=== PATIENT | female | born 1960 | race Hispanic/Latino ===

== ENCOUNTER 2020-03-05 19:39 | Observation (INO) | payer OTHER ==
[~2020-03-05] VITALS: Ht 160 cm; Wt 66.7 kg
--- NOTE | 2020-03-05 20:23 | Emergency Department Note ---
History of Present Illnes History of Present Illness Chief Complaint: Respiratory History of Present Illness This is a 60 year old female presents with one day h/o of dyspnea. Previous ad mission for respiratory failure secondary to COVID-19 infection at [facility]. Patient has been on supplemental oxygen since hospitalization. Seen at bedside with slight tachypnea . 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 Any updates have been documented here. Past Medical History Recent Fever: No Past Medical History: COPD Other Medical History: COVID-19 infection Other Surgery: PEG tube placement Social History Smoking Cessation: Current some day smoker Alcohol Use: None Any Illegal Drug Use: No Review of Systems Review of Systems Constitutional: Reports no symptoms EENTM: Reports no symptoms Cardiovascular: Reports no symptoms Respiratory: Reports dyspnea Gastrointestinal: Reports no symptoms Genitourinary: Reports no symptoms Musculoskeletal: Reports no symptoms Integumentary: Reports no symptoms Neurological: Reports no symptoms Psychological: Reports no symptoms Endocrine: Reports no symptoms Hematological/Lymphatic: Reports no symptoms Physical Exam Related Data Allergies: Coded Allergies: No Known Drug Allergies (Verified Allergy, Unknown, 03/05/20) Triage Vital Signs Vital Signs Date Time Temp Pulse Resp B/P (MAP) Pulse Ox O2 Delivery O2 Flow Rate FiO2 03/05/20 20:16 99.6 124 28 133/71 100 Nasal Cannula 2.0 Vital signs reviewed: Yes Physical Exam CONSTITUTIONAL Constitutional: Present cachectic, Present distressed, Present ill appearing HENT HENT: Present normocephalic, Present atraumatic, Present oropharynx clear/moist, Present nose normal HENT L/R: Present left ext ear normal, Present right ext ear normal EYES Eyes: Reports PERRL, Reports conjunctivae normal NECK Neck: Present ROM normal PULMONARY Pulmonary: Present effort normal, Present breath sounds normal CARDIOVASCULAR Cardiovascular: Present regular rhythm, Present heart sounds normal, Present capillary refill normal, Present normal rate GASTROINTESTINAL Abdominal: Present soft, Present nontender, Present bowel sounds normal GENITOURINARY Genitourinary: Present exam deferred SKIN Skin: Present dry, Present pale, Present other (wound vac installed at [facility]) MUSCULOSKELETAL Musculoskeletal: Present ROM normal NEUROLOGICAL Neurological: Present alert, Present oriented x 3, Present no gross motor or sensory deficits PSYCHOLOGICAL Psychological: Present mood/affect normal, Present judgement normal Results Laboratory Lab results reviewed: Yes Imaging Imaging results reviewed: Yes Impressions [place] [address] Patient Name: FLAVIA GARCIA MR #: [id number] : 1960 Age/Sex: 60/F Req #: [id number] Adm Physician: Ordered by: BRIE CURRY DO Report #: [id number] Location: ER Room/Bed: Procedure: [id number] DX/CHEST SINGLE (PORTABLE) Exam Date: 03/05/20 Exam Time: 2129 REPORT STATUS: Signed EXAMINATION: CHEST SINGLE (PORTABLE) INDICATION: Shortness of breath. COMPARISON: None FINDINGS: TUBES and LINES: None. LUNGS: Decreased interstitial opacities throughout both lungs predominantly affecting the upper lobes. Pulmonary vasculature is indistinct. Shallow inspiration. PLEURA: No pleural effusion or pneumothorax. HEART AND MEDIASTINUM: The cardiomediastinal silhouette is unremarkable. BONES AND SOFT TISSUES: No acute osseous lesion. Soft tissues are unremarkable. UPPER ABDOMEN: No free air under the diaphragm. IMPRESSION: Shallow inspiration with increased interstitial opacities in the upper and mid lungs. Findings are concerning for an infectious/inflammatory process such as viral pneumonia. Edema could have this appearance, but lack of pleural effusions makes this less likely. Radiographic follow-up in 6-8 weeks to document resolution is recommended. Signed by: Shukri Floyd MD on 03/05/2020 10:07 PM Dictated By: SHUKRI FLOYD MD 06 Transcribed By: RANI on 03/05/202206 COPY TO: BRIE CURRY DO~ Procedures 12 Lead ECG Interpretation ECG Interpretation : ECG: ECG 1 Business And Financial Counsel: Interpreted by ED physician Date: Mar 05, 2020 Time: 20:46 Prior ECG tracings: reviewed Rhythm: sinus rhythm Rate: normal BPM: 82 QRS axis: normal ST segments normal: Yes T waves normal: Yes Pacin% capture Clinical Impression: non-specific ECG Assessment & Plan Medical Decision Making MDM Diff Dx : ACS , PE, COVID-19 reinfection, sepsis, DKA Assessment & Plan Final Impression: (1) Dyspnea (2) Sacral wound (3) Hypokalemia Depart Disposition: ADMITTED Home Meds Reported Medications Gabapentin (GABAPENTIN) 100 Mg Capsule, 100 CAP PO Q8H 03/05/20 Quetiapine Fumarate (QUETIAPINE FUMARATE) 25 Mg Tablet, 25 MG PO Q8H 03/05/20 Polyethylene Glycol 3350 (MIRALAX) 17 Gm Powd.pack, 17 GM PO DAILY PRN for CONSTIPATION, GM 03/05/20 Potassium Chloride (POTASSIUM CHLORIDE) 20 Meq Tab.er.prt, 40 MEQ PO Q12H 03/05/20 Omeprazole (OMEPRAZOLE) 40 Mg Capsule.dr, 20 MG PO DAILY 03/05/20 Levothyroxine Sodium (SYNTHROID) 88 Mcg Tablet, 88 MCG PO 0630, #30 TAB 03/05/20 Furosemide (FUROSEMIDE) 40 Mg Tablet, 20 MG PO Daily, #30 TAB 03/05/20 Ipratropium [place] (IPRATROPIUM BROMIDE) 0.2 Mg/1 Ml Solution, 0.5 MG NEB, EACH 03/05/20 Budesonide (PULMICORT) 1 Mg/2 Ml Ampul.neb, 0.5 MG INH BID 03/05/20 Melatonin (MELATONIN) 3 Mg Tablet, 3 MG PO HS, TAB 03/05/20 Medications in the ED Aspirin 81 mg PRN ONCE PO Last administered on 03/05/20at 21:16; Admin Dose 81 MG; Start 03/05/20 at 20:30; Stop 03/05/20 at 20:31 Potassium Chloride 10 meq DAILY PO Last administered on 03/06/20at 00:27; Admin Dose 10 MEQ; Start 03/05/20 at 22:00; Stop 03/06/20 at 08:46; Status BRIE CHANDRA DO Mar 05, 2020 20:23
[2020-03-05] MEDS ORDERED: ASPIRIN 81 MG CHEW TAB PO ONE (20:30)
[2020-03-05] MEDS ORDERED: OMEPRAZOLE40 MG PO (20:52)
[2020-03-05] MEDS ORDERED: POTASSIUM CHLO20 ME1 PO (20:52)
[2020-03-05] MEDS ORDERED: MIRALAX17 GM PO (20:52)
[2020-03-05] MEDS ORDERED: MELATONIN3 MG PO (20:52)
[2020-03-05] MEDS ORDERED: SYNTHROID88 MCG PO (20:52)
[2020-03-05] MEDS ORDERED: PULMICORT1 MG/2 ML INH (20:52)
[2020-03-05] MEDS ORDERED: GABAPENTIN100 MG PO (20:52)
[2020-03-05] MEDS ORDERED: IPRATROPIU0.2 MG/1 M NEB (20:52)
[2020-03-05] MEDS ORDERED: QUETIAPINE FUMA25 MG PO (20:52)
[2020-03-05] MEDS ORDERED: FUROSEMIDE40 MG PO (20:52)
[2020-03-05 21:08] LABS: BASOPHILS % 0.3 % (0.0-1.0); EOSINOPHILS # (AUTO) 0.2 (0.0-0.4); HEMATOCRIT 35.1 % (34.2-44.1); HEMOGLOBIN 11.3 g/dL (12.0-16.0); LYMPHOCYTES # (AUTO) 2.2 (1.0-3.2); LYMPHOCYTES % 21.2 % (18.0-39.1); MEAN CORPUSCULAR HEMOGLOBIN 31.7 pg (28-32); MEAN CORPUSCULAR HGB CONC 32.2 g/dL (31-35); MEAN CORPUSCULAR VOLUME 98.6 fL (81-99); MONOCYTES # (AUTO) 0.9 (0.2-0.8); MONOCYTES % 8.9 % (4.4-11.3); NEUTROPHILS % 67.2 % (38.7-80.0); PLATELET COUNT 349 x10e3/uL (140-360); RED BLOOD COUNT 3.56 x10e6/uL (3.6-5.1); RED CELL DISTRIBUTION WIDTH 13.3 % (11.7-14.4)
[2020-03-05 21:24] LABS: ALANINE AMINOTRANSFERASE 11 IU/L (0-55); ALBUMIN 3.5 g/dL (3.5-5.0); ALBUMIN/GLOBULIN RATIO 0.8 (0.8-2.0); ALKALINE PHOSPHATASE 127 IU/L (40-150); ANION GAP 15.9 mmol/L (8-16); BLOOD UREA NITROGEN 9 mg/dL (7-26); BUN/CREATININE RATIO 12 (6-25); CARBON DIOXIDE 33 mmol/L (22-29); CHLORIDE 97 mmol/L (98-107); CREATINE KINASE 12 IU/L (29-168); CREATININE, SERUM 0.74 mg/dL (0.57-1.11); EST GLOMERULAR FILTRATION RATE > 60 ML/MIN (60-); GLUCOSE 131 mg/dL (74-118); SODIUM 143 mmol/L (136-145)
[2020-03-05 21:25] LABS: POTASSIUM 2.9 mmol/L (3.5-5.1)
[2020-03-05 21:35] LABS: B-TYPE NATRIURETIC PEPTIDE2 < 10.0 pg/mL (0-100)
[2020-03-05] MEDS ORDERED: POTASSIUM CHLORIDE 10MEQ EA PO SCH (22:00)
--- NOTE | 2020-03-05 22:10 | Diagnostic Imaging Report ---
EXAMINATION: CHEST SINGLE (PORTABLE) INDICATION: Shortness of breath. COMPARISON: None FINDINGS: TUBES and LINES: None. LUNGS: Decreased interstitial opacities throughout both lungs predominantly affecting the upper lobes. Pulmonary vasculature is indistinct. Shallow inspiration. PLEURA: No pleural effusion or pneumothorax. HEART AND MEDIASTINUM: The cardiomediastinal silhouette is unremarkable. BONES AND SOFT TISSUES: No acute osseous lesion. Soft tissues are unremarkable. UPPER ABDOMEN: No free air under the diaphragm. IMPRESSION: Shallow inspiration with increased interstitial opacities in the upper and mid lungs. Findings are concerning for an infectious/inflammatory process such as viral pneumonia. Edema could have this appearance, but lack of pleural effusions makes this less likely. Radiographic follow-up in 6-8 weeks to document resolution is recommended. Signed by: Jamal Harley MD on 03/05/2020 10:07 PM
--- OUTSIDE RECORDS SUMMARY | 2020-03-05 23:37 | XMS REPORT | Continuity of Care Document ---
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 Allergies, Adverse Reactions, Alerts This patient has no known allergies or adverse reactions. Medications This patient has no known medications. Procedures This patient has no known procedures. Results Test Description Test Time Test Comments Results Result Comments Source CHEST SINGLE (PORTABLE) 2020-03-05 21:59:00 [place] [address] Patient Name: FLAVIA GARCIA MR #: [id number] : 1960 Age/Sex: 60/F Req #: [id number] Adm Physician: Ordered by: BRIE CURRY DO Report #: [id number] Location: ER Room/Bed: Procedure: [id number] DX/CHEST SINGLE (PORTABLE) Exam Date: 03/05/20 Exam Time: 2129 REPORT STATUS: Signed EXAMINATION: CHEST SINGLE (PORTABLE) INDICATION: Shortness of breath. COMPARISON: None FINDINGS: TUBES and LINES: None. LUNGS: Decreased interstitial opacities throughout both lungs predominantly affecting the upper lobes. Pulmonary vasculature is indistinct. Shallow inspiration. PLEURA: No pleural effusion or pneumothorax. HEART AND MEDIASTINUM: The cardiomediastinal silhouette is unremarkable. BONES AND SOFT TISSUES: No acute osseous lesion. Soft tissues are unremarkable. UPPER ABDOMEN: No free air under the diaphragm. IMPRESSION: Shallow inspiration with increased interstitial opacities in the upper and mid lungs. Findings are concerning for an infectious/inflammatory process such as viral pneumonia. Edema could have this appearance, but lack of pleural effusions makes this less likely. Radiographic follow-up in 6-8 weeks to document resolution is recommended. Signed by: Shukri Floyd MD on 03/05/2020 10:07 PM Dictated By: SHUKRI FLOYD MD 06 Transcribed By: RANI on 03/05/202206 COPY TO: BRIE CURRY DO
[2020-03-06] VITALS (7 sets, daily range): BP systolic 98–106; BP diastolic 52–62
[2020-03-06 04:39] LABS: BASOPHILS % 0.4 % (0.0-1.0); EOSINOPHILS # (AUTO) 0.2 (0.0-0.4); EOSINOPHILS % 3.1 % (0.0-6.0); HEMATOCRIT 30.4 % (34.2-44.1); HEMOGLOBIN 9.6 g/dL (12.0-16.0); LYMPHOCYTES # (AUTO) 1.9 (1.0-3.2); LYMPHOCYTES % 25.1 % (18.0-39.1); MEAN CORPUSCULAR HEMOGLOBIN 31.5 pg (28-32); MEAN CORPUSCULAR HGB CONC 31.6 g/dL (31-35); MEAN CORPUSCULAR VOLUME 99.7 fL (81-99); MONOCYTES # (AUTO) 0.7 (0.2-0.8); MONOCYTES % 8.8 % (4.4-11.3); NEUTROPHILS # (AUTO) 4.8 (2.1-6.9); NEUTROPHILS % 62.3 % (38.7-80.0); PLATELET COUNT 274 x10e3/uL (140-360); RED BLOOD COUNT 3.05 x10e6/uL (3.6-5.1); RED CELL DISTRIBUTION WIDTH 13.4 % (11.7-14.4)
[2020-03-06 04:58] LABS: ALANINE AMINOTRANSFERASE 11 IU/L (0-55); ALBUMIN/GLOBULIN RATIO 0.7 (0.8-2.0); ALKALINE PHOSPHATASE 115 IU/L (40-150); ANION GAP 13.3 mmol/L (8-16); BLOOD UREA NITROGEN 8 mg/dL (7-26); BUN/CREATININE RATIO 12 (6-25); CALCIUM 9.4 mg/dL (8.4-10.2); CARBON DIOXIDE 33 mmol/L (22-29); CHLORIDE 98 mmol/L (98-107); CREATININE, SERUM 0.68 mg/dL (0.57-1.11); EST GLOMERULAR FILTRATION RATE > 60 ML/MIN (60-); GLUCOSE 109 mg/dL (74-118); POTASSIUM 3.3 mmol/L (3.5-5.1); SODIUM 141 mmol/L (136-145)
[2020-03-06 05:33] LABS: CREATINE KINASE 7 IU/L (29-168)
--- NOTE | 2020-03-06 06:53 | NUR ---
Dr Mayfield notified of consult for dyspnea and viral PNA. Will see patient.
[2020-03-06] MEDS ORDERED: POTASSIUM CHLORIDE 20 MEQ TAB CR PO ONE (09:35)
[2020-03-06] MEDS ORDERED: POLYETHYLENE GLYCOL 3350 17 GM PACK PO PRN (10:00)
[2020-03-06] MEDS ORDERED: ALBUTEROL SULFATE HFA 8GM INHALATION AEROSOL INH PRN (12:30)
[2020-03-06] MEDS ORDERED: IPRATROPIUM BROMIDE 0.02% 2.5 ML NEB NEB PRN (12:30)
--- NOTE | 2020-03-06 13:10 | NUR ---
infectious disease consultation note. March 06, 2023 Patient seen and examined chart reviewed. Chief complaint pain in the buttock area. This patient who is currently in the medical floor complaining of pain in the buttock area which has a wound VAC the patient denied shortness of breath or cough apparently she was diagnosed with cold with a while ago she had a lengthy hospitalization Patient came to our emergency room complaining of shortness of breath but currently she is alert oriented and comfortable there is no shortness of breath when I asked her her main complaint was mainly the pain in the perirectal area she denies any fever or chills nausea vomiting or diarrhea. Her This is a 60 year old female presents with one day h/o of dyspnea. Previous admission for respiratory failure secondary to COVID-19 infection at [facility]. Patient has been on supplemental oxygen since hospitalization. Seen at bedside with slight tachypnea . 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 Any updates have been documented here. Physical Exam Related Data Allergies: Coded Allergies: No Known Drug Allergies (Verified Allergy, Unknown, 03/05/20) Physical Exam CONSTITUTIONAL is currently alert oriented does not seem to be in acute distress HENT EYES it is not spelled out icteric normocephalic NECK supple no JVD no lymphadenopathy no thyromegaly PULMONARY few crackles bilateral CARDIOVASCULAR S1-S2 no S3-S4 GASTROINTESTINAL abdomen soft parts of present extremities no edema GENITOURINARY external inspection within normal limit SKINno rash MUSCULOSKELETAL generalized weakness NEUROLOGICAL nonfocal PSYCHOLOGICAL Results ImagingShallow inspiration with increased interstitial opacities in the upper and mid lungs. Findings are concerning for an infectious/inflammatory process such as viral pneumonia. Edema could have this appearance, but lack of pleural effusions makes this less likely. Radiographic follow-up in 6-8 weeks to document resolution is recommended. she is currently on 3 L of oxygen Lab data reviewed impression and plan Patient shortness of breath dyspnea concerned about pneumonia community-acquired may be aspiration in a patient who is debilitated given Rocephin 1 g daily. Hypoxemia oxygen as needed she probably to go home with oxygen. Decubitus ulcers continue with local care. History of 1219. Debility PT OT we will follow with you
--- NOTE | 2020-03-06 13:44 | Consultation ---
DATE OF CONSULTATION: Pulmonary Critical Care Consultation CHIEF COMPLAINT: Dyspnea following prolonged COVID illness. HISTORY OF PRESENT ILLNESS: The patient is a 60-year-old woman. She required hospitalization at the [facility] for COVID with respiratory failure. She was fine and they released from the hospital about 12 days ago. She has now noticed some increased dyspnea. She has a mild cough, but no fevers. She does not have chest pain. She uses oxygen at home. PAST SURGICAL HISTORY: Status post hysterectomy. PAST MEDICAL HISTORY: 1. History of COVID, as noted above. 2. Hypertension. 3. No prior history of asthma or respiratory problems. 4. No prior history of cardiac problems. SOCIAL HISTORY: The patient is not a drinker or smoker. FAMILY HISTORY: Family history is noncontributory. ALLERGIES: THERE ARE NO KNOWN DRUG ALLERGIES. FAMILY HISTORY: Noncontributory. REVIEW OF SYSTEMS: There is no history of recent fevers. She has fatigue. She notes some dyspnea with exertion. She has no headache. She is not having chest pain. She has mild cough. There is no nausea or vomiting. She has no leg swelling. She does not complain of any focal neurological problems. PHYSICAL EXAMINATION: VITAL SIGNS: The patient is afebrile. The blood pressure is 106/62, saturation is 100% on 2 L, and the pulse is 90. The respiratory rate is 20. HEENT: Shows no facial swelling or erythema. LYMPHATIC: Shows no submandibular, cervical, or supraclavicular adenopathy. CARDIAC: Reveals a regular rate and rhythm with normal S1 and S2. LUNGS: Auscultation of lungs reveals rhonchorous breath sounds bilaterally. There is no wheezing. ABDOMEN: Soft and nontender. There is no rebound or guarding. EXTREMITIES: Shows no leg edema or calf tenderness. There is no cyanosis or clubbing. SKIN: Shows no rashes. NEUROLOGICAL: Shows no focal abnormalities. LABORATORY DATA: White blood cell count is 7.6 and the hemoglobin is 9.6. The platelet count is 274. The BUN to creatinine ratio is 8 to 0.68, potassium is 3.3, and the other electrolytes are within normal limits. RADIOGRAPHIC DATA: Chest x-ray shows some increased interstitial opacities consistent with resolving viral pneumonia. IMPRESSION: 1. Dyspnea and shortness of breath following a prolonged COVID illness. 2. Anemia, unspecified. 3. Hypokalemia. PLAN: 1. The patient should have a CT scan of the chest with a pulmonary angiogram protocol to rule out pulmonary embolism. The patients with COVID or hypercoagulable and increased risk for pulmonary emboli. 2. Echocardiogram to evaluate for any myocarditis or cardiac injury related to prior COVID. 3. The patient is afebrile at this time with no white blood cell count. I do not believe she has active pneumonia and did not recommend antibiotics at this time. 4. Continue oxygen. 5. Physical therapy. 6. Wound care for decubitus ulcer that was present on admission. Fabian Mayfield MD [facility]/MARK /[id number]
[2020-03-06] MEDS ORDERED: GABAPENTIN 100 MG CAP PO SCH (14:00)
[2020-03-06] MEDS ORDERED: QUETIAPINE FUMARATE 25 MG TAB PO SCH (14:00)
[2020-03-06] MEDS ORDERED: CEFTRIAXONE SOD 1 GM/NS 50 ML 50 ML IV SCH ×2 (14:00→16:00)
--- NOTE | 2020-03-06 14:11 | NUR ---
Wound care consult for sacral wound patient personal VAC unit on sacral wound running 125mmhg continuos with black foam patient reports vac was just applied and prefer to change on reg change date which will be Thursday03/07/2020 Will reapply patient personal unit 03/07/2020 if ok with MD due to potential evacuation R/T adverse weather conditions Addendum: 03/06/20 at 1418 by Barry Adrian RN Amended: Links added.
[2020-03-06] MEDS ORDERED: SODIUM CHLORIDE 0.9% 50ML 50 ML ONE (15:37)
[2020-03-06] MEDS ORDERED: IOPAMIDOL 370 MG/ML 200 ML INFUS..BTL INJ ONE (15:37)
--- NOTE | 2020-03-06 16:35 | Diagnostic Imaging Report ---
EXAM: CT Chest WITH contrast- Pulmonary Embolism Protocol INDICATION: Shortness of breath COMPARISON: None TECHNIQUE: Chest was scanned utilizing a multidetector helical scanner from the lung apex through the level of the diaphragm after administration of IV contrast. Thin section reconstructions were obtained with special concentration on the pulmonary arteries. Coronal and sagittal reformations were obtained. Pulmonary embolism protocol was performed. IV CONTRAST: 100 cc of Isovue 370 RADIATION DOSE: Total DLP: 473 mGy*cm Dose modulation, iterative reconstruction, and/or weight based adjustment of the mA/kV was utilized to reduce the radiation dose to as low as reasonably achievable. COMPLICATIONS: None FINDINGS: LINES/ TUBES: None. PULMONARY ARTERIES: No filling defect is identified within the pulmonary arteries to the segmental level. The subsegmental pulmonary arteries are not well opacified. Main pulmonary artery measures 2.1 cm in diameter. No right heart strain. LUNGS AND AIRWAYS: The central airways are patent. Diffuse upper lobe predominant bronchiectasis. Diffusely increased bilateral upper lobe predominant interstitial opacities without honeycombing. Generalized subpleural sparing. PLEURA: The pleural spaces are clear. HEART AND MEDIASTINUM: The thyroid gland is normal. No supraclavicular, axillary or mediastinal lymphadenopathy. Mild bilateral hilar lymphadenopathy measuring up to 9 mm on the left and 9 mm on the right. The heart is not enlarged. No pericardial effusion. Minimal aortic atherosclerotic calcifications. UPPER ABDOMEN: No acute findings in the upper abdomen. BONES: No acute osseous injury. No suspicious lytic or blastic lesions. SOFT TISSUES: Unremarkable. IMPRESSION: No pulmonary embolism. Bilateral upper lobe predominant bronchiectasis and diffusely increased bilateral interstitial opacities with relative subpleural sparing. In the setting of known recent history of COVID-19 viral pneumonia, findings may represent a combination of resolving post-infectious findings and chronic interstitial fibrosis/scarring. Signed by: Bronson Benson MD on 03/06/2020 4:31 PM
[2020-03-06] MEDS: QUETIAPINE FUMARATE 25 MG TAB PO SCH ×2 (16:49→21:25)
[2020-03-06] MEDS: GABAPENTIN 100 MG CAP PO SCH ×2 (16:49→21:25)
[2020-03-06] MEDS ORDERED: ENOXAPARIN SOD INJ 40 MG/0.4 ML SYR SC SCH (17:00)
[2020-03-06 17:40] LABS: CREATINE KINASE MB 0.6 ng/mL (0-5.0)
--- NOTE | 2020-03-06 19:40 | NUR ---
pt received. pt resting. no ss of distress noted. no co pain at time. tele in place. 02 nc noted. will cont to follow poc. call byrd within reach.
[2020-03-06] MEDS ORDERED: MELATONIN 3 MG TAB PO SCH (21:00)
--- NOTE | 2020-03-06 21:00 | NUR ---
report given to new pm primary nurse.
--- NOTE | 2020-03-06 23:30 | NUR ---
Report called to [facility] for room 285
--- NOTE | 2020-03-06 23:40 | NUR ---
Received the pt from [facility] in a bed.aaox3.oriented to the unit.peg tube in place.tele # [phone] place .sinus rhythm.bed locked and in lowest position.call light within reach.instructed to call for assistance as needed.
--- NOTE | 2020-03-06 23:40 | NUR ---
Patient transferred to room 285. Nurse notified of transfer. All personal belongings transferred with patient. A&Ox3 no issues or concerns noted.
--- NOTE | 2020-03-06 23:45 | NUR ---
Daughter Latrice notified of transfer to room 285. [phone]
[2020-03-07 05:10] VITALS: BP 90/55
[2020-03-07] MEDS: GABAPENTIN 100 MG CAP PO SCH (05:41)
[2020-03-07] MEDS: QUETIAPINE FUMARATE 25 MG TAB PO SCH (05:41)
[2020-03-07] MEDS ORDERED: LEVOTHYROXINE SODIUM 88 MCG TAB PO SCH (06:30)
[2020-03-07 06:37] LABS: BASOPHILS % 0.2 % (0.0-1.0); EOSINOPHILS # (AUTO) 0.2 (0.0-0.4); EOSINOPHILS % 3.6 % (0.0-6.0); HEMATOCRIT 30.2 % (34.2-44.1); HEMOGLOBIN 9.4 g/dL (12.0-16.0); LYMPHOCYTES # (AUTO) 1.4 (1.0-3.2); LYMPHOCYTES % 24.3 % (18.0-39.1); MEAN CORPUSCULAR HEMOGLOBIN 32.4 pg (28-32); MEAN CORPUSCULAR HGB CONC 31.1 g/dL (31-35); MONOCYTES # (AUTO) 0.6 (0.2-0.8); MONOCYTES % 10.3 % (4.4-11.3); NEUTROPHILS # (AUTO) 3.6 (2.1-6.9); NEUTROPHILS % 61.1 % (38.7-80.0); PLATELET COUNT 233 x10e3/uL (140-360); RED CELL DISTRIBUTION WIDTH 13.3 % (11.7-14.4)
[2020-03-07 06:48] LABS: MEAN CORPUSCULAR VOLUME 104.1 fL (81-99)
--- NOTE | 2020-03-07 06:48 | NUR ---
BEDSIDE SBAR REPORT RECEIVED FROM [facility], PM SHIFT. PT RECEIVED RESTING IN BED IN NO ACUTE DISTRESS. HOB ELEVATED 30 DEGREES. PT IS ABLE TO MAKE NEEDS KNOWN AND STATES NO NEEDS. CALL LIGHT AND BELONGINGS PLACED NEARBY. PT EDUCATED ON FALL RISK PRECAUTIONS. PT VERBALIZED UNDERSTANDING. WILL CONTINUE TO MONITOR.
[2020-03-07 07:07] LABS: ALANINE AMINOTRANSFERASE 10 IU/L (0-55); ALBUMIN 2.9 g/dL (3.5-5.0); ALBUMIN/GLOBULIN RATIO 0.8 (0.8-2.0); ALKALINE PHOSPHATASE 115 IU/L (40-150); ANION GAP 12.6 mmol/L (8-16); BLOOD UREA NITROGEN 8 mg/dL (7-26); BUN/CREATININE RATIO 12 (6-25); CALCIUM 9.6 mg/dL (8.4-10.2); CARBON DIOXIDE 33 mmol/L (22-29); CHLORIDE 105 mmol/L (98-107); CREATININE, SERUM 0.68 mg/dL (0.57-1.11); EST GLOMERULAR FILTRATION RATE > 60 ML/MIN (60-); GLUCOSE 103 mg/dL (74-118); POTASSIUM 3.6 mmol/L (3.5-5.1); SODIUM 147 mmol/L (136-145)
--- NOTE | 2020-03-07 07:08 | NUR ---
BED SIDE SHIFT REPORT GIVEN TO ONCOMING RN.STABLE CONDITION.
[2020-03-07 07:37] VITALS: BP 97/59
[2020-03-07 09:00] VITALS: BP 97/59
[2020-03-07] MEDS ORDERED: FUROSEMIDE 20 MG TAB PO SCH (09:00)
[2020-03-07] MEDS ORDERED: PANTOPRAZOLE SOD 40 MG TABEC PO SCH (09:00)
--- NOTE | 2020-03-07 09:45 | Discharge Summary ---
HISTORY: Ms. Nuno is a 60-year-old female with history of COVID in November 2019. She was sick for like 3 months, on ventilator for several weeks, came to the emergency room complaining of shortness of breath. She has been seen by Dr. Rob. She is not on any antibiotics. She is on oxygen at home. Seen also by Dr. Mayfield to rule out PE. Chest CT was negative for PE, so the plan is to discharge her home today if it is okay with consultants. She has a stage IV sacral decubiti. She is on a vacuum and home health at home. PHYSICAL EXAMINATION: GENERAL: She is awake and alert. She is feeling better. VITAL SIGNS: Temperature is 98.4, blood pressure 97/59. HEART: Regular rate. LUNGS: Poor inspiratory effort. ABDOMEN: Soft. LABORATORY DATA: On the blood work; white count 5.85, hemoglobin is 9.4, hematocrit 30.2. Potassium 3.6, creatinine is 0.68, glucose 103. Cardiac enzymes came back negative. Chest CT, no PE. Blood cultures, no growth so far. DISCHARGE DIAGNOSES: 1. Shortness of breath, probably due to chronic damage due to coronavirus disease 2019 pneumonia. 2. Chronic respiratory failure, on O2 nasal cannula. 3. Hypokalemia, resolved. 4. Hypertension. 5. Sacral decubitus stage IV, vacuum. Like I said before, the plan will be to discharge her home with home health and home oxygen. Continue vacuum. Continue wound care. So, plan is to discharge her today if it is okay with Dr. Rob and Dr. Mayfield. Please see home medication reconciliation list. All this was discussed with the patient and all questions were answered to satisfaction. MD CHAU Velasquez/MARK /[id number]
[2020-03-07 11:28] VITALS: BP 104/66
--- NOTE | 2020-03-07 12:42 | NUR ---
WOUND CARE FOLLOW UP FOR WOUND ASSESSMENT AND VAC REAPPLICATION SACRAL HEALING STAGE 4 ULCERATION WITH RED GRANDULAR BASE NOTED WITH MODERATE SERO SANG DRAINAGE MEASURES 3CM X4CM X1.5CM PATIENTS PERSONAL VAC UNIT REAPPLIED DUE TO PATIENT PROBABLE DISCHARGE AND IMPENDING WEATHER UNIT SET AT 125 MMHG CONTINUOUS WITH BLACK FOAM SEAL ACHIEVED PATIENT WITHOUT C/O PAIN TEACHING DONE RELATING TO VAC SAFETY AND NEED TO REMOVE VAC FOAM FROM WOUND BASE IF UNIT NOT WORKING OR SEAL CANNOT BE MAINTAINED WET FOAM CAN DAMAGE WOUND BASE AND BE A MEDIUM FOR INFECTION Addendum: 03/07/20 at 1248 by Barry Adrian RN Amended: Links added.
--- NOTE | 2020-03-07 14:01 | NUR ---
infectious disease progress note Patient seen and examined chart reviewed Patient is feeling much better there is no more shortness of breath she is back to her baseline lability of your chart reviewed there is no cough her physical examination she is currently alert oriented does not seem to be in acute distress her vitals stable currently afebrile HEENT she is not protecting supple chest clear bilateral heart S1-S2 abdomen soft also present extremity no edema skin no rash Patient pneumonia clinically seems in better probably aspiration patient is with no symptoms can be discharged home PT OT Oxygen as needed Patient is not infectious anymore
--- NOTE | 2020-03-07 14:30 | NUR ---
PATIENT DISCHARGED HOME WITH [facility]. PERIPHERAL IV DISCONTINUED; CATHETER INTACT WITHOUT RESISTANCE. DRY DRESSING APPLIED. PATIENT WENT HOME WITH HOME WHEELCHAIR, HOME OXYGEN, AND HOME WOUND VAC. BRADLY BERNARDO, DAUGHTER, WILL NOTIFY HOME HEALTH AGENCY THAT WOUND VAC DRESSING CHANGE COMPLETED TODAY AND NEXT DRESSING CHANGE DUE THURSDAY. PATIENT RECEIVED DISCHARGE SUMMARY AND EDUCATION LEAFLETS.
[2020-03-07 15:00] VITALS: BP 102/55
== END 2020-03-07 15:25 | disposition home or self-care (01) ==
LOC: ER 20:04 → ERHOLD 23:34 → INTOOBSV 23:34 → IMCU 03-06 03:07 → MED/SURG3 03-06 23:48
PROVIDERS: ADMIT Internal Medicine; ATTEND Internal Medicine
DX: B94.8 Sequelae of other specified infectious and parasitic diseases (principal); J96.10 Chronic respiratory failure, unspecified whether with hypoxia or hypercapnia; I10 Essential (primary) hypertension; L89.154 Pressure ulcer of sacral region, stage 4; E03.9 Hypothyroidism, unspecified; J12.9 Viral pneumonia, unspecified; E87.6 Hypokalemia; D64.9 Anemia, unspecified; Z11.59 Encounter for screening for other viral diseases
CPT/HCPCS: 36415 ×3; 71045; 71260; 80053 ×3; 82550 ×2; 82553 ×2; 83605; 83880; 84484 ×2; 85025 ×3; 87040; 92526; 92610; 93005; 93306; 97116; 97161; 97605; 99284; G0378 ×3; J0696; J1650; Q9967; S0164; U0002